=== PATIENT | female | born 2000 | race Caucasian/White ===

== ENCOUNTER 2022-04-06 19:53 | Emergency (ER) | payer OTHER ==
[2022-04-06 20:10] VITALS: RESP 20; BMI 26.2
[2022-04-06 21:55] LABS: BASO % 0.3 % (0-2.0); EOS % 0.5 % (0-4.5); HEMATOCRIT 34.5 % (32.4-45.2); HEMOGLOBIN 12.2 GM/dL (10.7-15.3); LYMPH % 18.8 % (8-40); MCH 31.5 pg (25.7-33.7); MCHC 35.4 g/dl (32.0-36.0); MEAN PLT VOLUME 7.2 fl (7.5-11.1); MONO % 9.9 % (3.8-10.2); NEUT % 70.5 % (42.8-82.8); PLATELET COUNT 345 10^3/uL (134-434); RBC 3.88 M/mm3 (3.60-5.2); RDW 14.2 % (11.6-15.6); WHITE BLOOD COUNT 10.8 K/mm3 (4.0-10.0)
[2022-04-06 22:01] LABS: INR 1.03 (0.83-1.09); PROTHROMBIN TIME (PATIENT) 11.8 SEC (9.7-13.0)
[2022-04-06 22:16] LABS: CALCIUM 8.8 mg/dL (8.5-10.1)
[2022-04-06 22:17] LABS: ALBUMIN 3.2 g/dl (3.4-5.0); BLOOD UREA NITROGEN 3.2 mg/dL (7-18)
[2022-04-06 22:20] LABS: CREATININE 0.4 mg/dL (0.55-1.3)
[2022-04-06 22:22] LABS: BILIRUBIN,TOTAL 0.3 mg/dL (0.2-1); TOT PROT 6.7 g/dl (6.4-8.2)
[2022-04-06] MEDS ORDERED: SODIUM CHLORIDE 1,000 ML IV STA (23:51)
[2022-04-07] MEDS ORDERED: ACETAMINOPHEN 500 MG TABLET (FP) PO ONE (00:03)
[2022-04-07] MEDS ORDERED: ACETAMINOPHEN 500 MG TABLET (FP) ONE (00:09)
[2022-04-07 02:41] VITALS: BP 110/64; PULSE 90; TEMP 98.1
== END 2022-04-07 01:40 | disposition home or self-care (01) ==
LOC: JER 19:53
PROC: 3E0337Z Introduction of Electrolytic and Water Balance Substance into Peripheral Vein, Percutaneous Approach (ICD-10-PCS; principal; 2022-04-06)
DX: O26.892 Other specified pregnancy related conditions, second trimester (principal); R07.9 Chest pain, unspecified; Z3A.20 20 weeks gestation of pregnancy
CPT/HCPCS: 0241U-QW; 36415; 71275-TC; 80053; 83735; 84484; 85025; 85610; 85730; 93005; 93010; 99285-25; Q9967

== ENCOUNTER 2022-08-03 17:04 | Inpatient (IN) | payer OTHER ==
[2022-08-03 19:16] VITALS: BMI 29.0
[2022-08-03] MEDS ORDERED: DINOPROSTONE 10 MG VAGINAL SUPPOSITORY VG ONE ×2 (19:39→19:45)
[2022-08-03 20:26] LABS: BASO % 0.2 % (0-2.0); EOS % 0.4 % (0-4.5); HEMATOCRIT 32.5 % (32.4-45.2); HEMOGLOBIN 10.5 GM/dL (10.7-15.3); LYMPH % 30.2 % (8-40); MCHC 32.2 g/dl (32.0-36.0); MEAN CELL VOLUME 80.8 fl (80-96); MEAN PLT VOLUME 8.4 fl (7.5-11.1); MONO % 6.2 % (3.8-10.2); PLATELET COUNT 386 10^3/uL (134-434); RBC 4.02 M/mm3 (3.60-5.2); WHITE BLOOD COUNT 9.2 K/mm3 (4.0-10.0)
[2022-08-03 20:36] LABS: CALCIUM 9.1 mg/dL (8.5-10.1)
[2022-08-03 20:37] LABS: BLOOD UREA NITROGEN 6.8 mg/dL (7-18)
[2022-08-03 20:40] LABS: CREATININE 0.4 mg/dL (0.55-1.3)
[2022-08-03 20:43] LABS: INR 0.96 (0.83-1.09)
[2022-08-03 20:46] LABS: ACTIVATED PTT 27.4 SECONDS (25.2-36.5)
[2022-08-03 21:38] LABS: HIV INTERPRETATION NEGATIVE (NEGATIVE)
[2022-08-03] MEDS ORDERED: PROMETHAZINE HCL 25 MG/1 ML VIAL IVPUSH ONE (23:43)
[2022-08-03] MEDS ORDERED: BUTORPHANOL TARTRATE 1 MG/ML VIAL IVPB ONE (23:43)
[2022-08-03] MEDS ORDERED: BUTORPHANOL TARTRATE 2 MG/ML VIAL ONE (23:44)
[2022-08-04] MEDS ORDERED: BUTORPHANOL TARTRATE 1 MG/ML VIAL IVPB ONE (03:27)
[2022-08-04] MEDS ORDERED: BUTORPHANOL TARTRATE 2 MG/ML VIAL ONE (03:27)
[2022-08-04] MEDS ORDERED: PROMETHAZINE HCL 25 MG/1 ML VIAL IVPUSH ONE (03:27)
[2022-08-04] MEDS ORDERED: FENTANYL/BUPIVACAINE/NS/PF - PCEA - 50 ML DISP.SYRIN EP ONE (06:42)
[2022-08-04] MEDS: ELECTROLYTE-148 SOLN 500 ML IV SCH ×2 (07:00→19:56)
[2022-08-04] MEDS ORDERED: NALOXONE HCL 0.4 MG/ML VIAL IVPUSH PRN (07:43)
[2022-08-04] MEDS ORDERED: FENTANYL/BUPIVACAINE/NS/PF - PCEA - 50 ML DISP.SYRIN EP SCH (07:45)
[2022-08-04] MEDS ORDERED: ELECTROLYTE-148 SOLN 1,000 ML IV SCH (08:00)
[2022-08-04] MEDS ORDERED: OXYTOCIN 20 UNITS in 0.9% NS 20 UNIT/1,000 ML INFUS.BAG IV ONE (09:39)
[2022-08-04] MEDS ORDERED: BENZOCAINE 28 GM HEMORRHOIDAL OINTMENT TP PRN (11:25)
[2022-08-04] MEDS ORDERED: BISACODYL 10 MG SUPP.RECT RC PRN (11:25)
[2022-08-04] MEDS ORDERED: WITCH HAZEL 50% (TUCKS) 40 PAD/JAR PAD TP PRN (11:25)
[2022-08-04] MEDS ORDERED: BENZOCAINE 20% 57 GM BOTTLE TP PRN (11:25)
[2022-08-04] MEDS ORDERED: ACETAMINOPHEN 325 MG TABLET (FP) PO PRN (11:25)
[2022-08-04] MEDS ORDERED: METHYLERGONOVINE MALEATE 0.2 MG/1 ML AMP IM PRN (11:25)
[2022-08-04] MEDS ORDERED: OXYTOCIN 20 UNITS in 0.9% NS 20 UNIT/1,000 ML INFUS.BAG IV SCH (11:30)
[2022-08-04] MEDS: IBUPROFEN 600 MG TABLET (FP) PO PRN (18:02)
[2022-08-04 23:32] VITALS: RESP 18
[2022-08-05] MEDS: IBUPROFEN 600 MG TABLET (FP) PO PRN ×3 (01:47→21:00)
[2022-08-05 08:50] LABS: BASO % 0.6 % (0-2.0); EOS % 0.7 % (0-4.5); HEMATOCRIT 27.7 % (32.4-45.2); LYMPH % 31.7 % (8-40); MCH 26.3 pg (25.7-33.7); MCHC 32.6 g/dl (32.0-36.0); MEAN CELL VOLUME 80.8 fl (80-96); MONO % 5.9 % (3.8-10.2); NEUT % 61.1 % (42.8-82.8); PLATELET COUNT 308 10^3/uL (134-434); RBC 3.43 M/mm3 (3.60-5.2); RDW 15.7 % (11.6-15.6); WHITE BLOOD COUNT 12.2 K/mm3 (4.0-10.0)
[2022-08-05] MEDS ORDERED: DIPHTH,PERTUSS(ACELL),TET 0.5 ML DISP.SYRIN IM ONE (10:00)
[2022-08-05] MEDS ORDERED: PRENATAL VITAMINS W/ FOLIC ACID TABLET (FP) PO SCH (10:00)
[2022-08-05] MEDS ORDERED: SENNOSIDES/DOCUSATE COMBO (SENNA PLUS) TABLET (UD) PO PRN (22:00)
[2022-08-06] MEDS: IBUPROFEN 600 MG TABLET (FP) PO PRN (09:03)
[2022-08-06 09:45] VITALS: BP 126/79; PULSE 79; TEMP 98.2
== END 2022-08-06 10:15 | disposition home or self-care (01) | DRG 560 ==
LOC: JLDR 17:04 → J3W 08-04 12:45
PROVIDERS: ADMIT Obstetrics & Gynecology; ATTEND Obstetrics & Gynecology
PROC: 3E0P7VZ Introduction of Hormone into Female Reproductive, Via Natural or Artificial Opening (ICD-10-PCS; 2022-08-03)
PROC: 10E0XZZ Delivery of Products of Conception, External Approach (ICD-10-PCS; principal; 2022-08-04)
PROC: 10907ZC Drainage of Amniotic Fluid, Therapeutic from Products of Conception, Via Natural or Artificial Opening (ICD-10-PCS; 2022-08-04)
PROC: 0HQ9XZZ Repair Perineum Skin, External Approach (ICD-10-PCS; 2022-08-04)
DX: O70.0 First degree perineal laceration during delivery (principal); Z3A.39 39 weeks gestation of pregnancy; Z37.0 Single live birth
CPT/HCPCS: 36415; 59409; 80048; 85025; 85610; 85730; 86780; 86850; 86900; 86901; 87389; 90715; C9803-CS; U0003; U0005